=== PATIENT | female | born 1980 | race Caucasian/White ===

== ENCOUNTER 2022-03-04 12:40 | Emergency (ER) | payer MEDICAID ==
[~2022-03-04] VITALS: Ht 160 cm; Wt 84.4 kg
[2022-03-04 12:55] VITALS: BP 124/81
--- NOTE | 2022-03-04 13:00 | NUR ---
PT AMBULATED TO BED 04.
--- NOTE | 2022-03-04 13:04 | NUR ---
41 y/o female, c/o right flank pain with subjective fever, dysuria for 2 days. denies nausea, vomiting, diarrhea. skin is pink/warm/dry. a&o x4 with even and steady gait. lungs clear bl, heart rate even and regular. pt denies any cp, sob, or cough at this time. pt states pain is 8/10 at this time. vss. patient positioned for comfort. hob elevated. bed down. ermd made aware of pt. pmh: denies nka med: tylenol prior to arrival with relief
[2022-03-04] MEDS ORDERED: CYCL-711 PO (13:42)
[2022-03-04] MEDS ORDERED: NAPR-54 PO (13:42)
[2022-03-04] MEDS ORDERED: KETOROLAC 30 MG/ML VIAL IM ONE (13:45)
[2022-03-04 14:33] VITALS: BP 124/81
--- NOTE | 2022-03-04 14:49 | NUR ---
Patient discharged with v/s stable. Written and verbal after care instructions given and explained. Patient alert, oriented and verbalized understanding of instructions. Ambulatory with steady gait. All questions addressed prior to discharge. ID band removed. Patient advised to follow up with PMD. Rx of cyclobenzaprine, naproxen (sent) given. Patient educated on indication of medication including possible reaction and side effects. Opportunity to ask questions provided and answered. work note given
== END 2022-03-04 14:33 | disposition home or self-care (01) ==
LOC: MED 12:40
DX: S29.012A Strain of muscle and tendon of back wall of thorax, initial encounter (principal); X58.XXXA Exposure to other specified factors, initial encounter; Y93.89 Activity, other specified; Y92.89 Other specified places as the place of occurrence of the external cause; Y99.8 Other external cause status
CPT/HCPCS: 81002; 81025; 96372; 99283; J1885

== ENCOUNTER 2023-04-08 14:05 | Emergency (ER) | payer MEDICAID ==
[~2023-04-08] VITALS: Ht 165.1 cm; Wt 85.3 kg
[~2023-04-08 14:05] MED LIST: CYCL-711 PO; NAPR-54 PO
[2023-04-08 14:12] VITALS: BP 128/76; PULSE 69; RESP 20; TEMP 98; O2SAT 99
[2023-04-08] MEDS ORDERED: HYDROcodone/APAP 5/325 MG 1 TAB TAB PO ONE (15:50)
[2023-04-08] MEDS ORDERED: KETOROLAC 30 MG/ML VIAL IM ONE (15:50)
[2023-04-08] MEDS ORDERED: IBUP-2213 PO (16:00)
[2023-04-08] MEDS ORDERED: ACET-8905 PO (16:00)
[2023-04-08] MEDS ORDERED: LID5T TP (16:00)
--- NOTE | 2023-04-08 16:20 | NUR ---
Patient discharged with v/s stable. Written and verbal after care instructions given and explained. Patient alert, oriented and verbalized understanding of instructions. Ambulatory with steady gait. All questions addressed prior to discharge. ID band removed. Patient advised to follow up with PMD. Rx of NORCO 5-325, LIDODERM, MOTRIN given. Patient educated on indication of medication including possible reaction and side effects. Opportunity to ask questions provided and answered.
== END 2023-04-08 16:20 | disposition home or self-care (01) ==
LOC: MED 14:05
DX: S39.012A Strain of muscle, fascia and tendon of lower back, initial encounter (principal); R03.0 Elevated blood-pressure reading, without diagnosis of hypertension; Z79.899 Other long term (current) drug therapy; X58.XXXA Exposure to other specified factors, initial encounter; Y93.89 Activity, other specified; Y92.89 Other specified places as the place of occurrence of the external cause; Y99.8 Other external cause status
CPT/HCPCS: 81002; 81025; 96372; 99283; J1885